=== PATIENT | female | born 1980 | race African-American/Black ===

== ENCOUNTER 2016-07-25 10:10 | Emergency (ER) | payer OTHER ==
[~2016-07-25] VITALS: Wt 100.0 kg
[~2016-07-25 10:10] MED LIST: ALBU8.5H5; CEPH-443 PO; CLIN300C2 PO; HYDR-1666 PO; IBUP-1542 PO; IBUP-727 PO; NO MEDS
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
[2016-07-25] MEDS ORDERED: IBUP-1542 PO (13:49)
[2016-07-25] MEDS ORDERED: CYCL-319 PO (13:50)
[2016-07-25 14:15] VITALS: BP 134/90; PULSE 62; RESP 16; TEMP 98.9
== END 2016-07-25 14:19 | disposition home or self-care (01) ==
LOC: FTE 10:10
DX: S49.92XA Unspecified injury of left shoulder and upper arm, initial encounter (principal); S29.001A Unspecified injury of muscle and tendon of front wall of thorax, initial encounter; S39.92XA Unspecified injury of lower back, initial encounter; J45.909 Unspecified asthma, uncomplicated; R07.9 Chest pain, unspecified; V49.40XA Driver injured in collision with unspecified motor vehicles in traffic accident, initial encounter
CPT/HCPCS: 71010; 72100; 73030; 93005; Z7502